=== PATIENT | male | born 1995 | race African-American/Black ===

== ENCOUNTER 2017-07-06 11:40 | Emergency (ER) | payer SELFPAY ==
[2017-07-06 12:07] LABS: Hematocrit 47.2 % (42.0-52.0); Mean Platelet Volume 7.4 fL (7.4-10.4); Red Blood Cell (RBC) Count 5.61 mill/uL (4.70-6.10); White Blood Cell (WBC) Count 17.7 thou/uL (4.8-10.8)
[2017-07-06 12:31] LABS: ALT (SGPT) 19 U/L (8-55); AST (SGOT) 15 U/L (5-34); Alkaline Phosphatase 69 U/L (40-150); Anion Gap 17 mmol/L (10-20); BUN (Urea Nitrogen) 7 mg/dL (8.9-20.6); Bilirubin, Total 0.8 mg/dL (0.2-1.2); Calc. Creatinine Clearance 0 mL/min (70-130); Calcium 10.1 mg/dL (7.8-10.44); Carbon Dioxide 19 mmol/L (22-29); Chloride 105 mmol/L (98-107); Estimated GFR-MDRD Greater than 90; Globulin 3.4 g/dL (2.4-3.5); Lipase 36 U/L (8-78); Protein, Total 7.8 g/dL (6.0-8.3)
[2017-07-06 12:37] LABS: Band 3 % (5-11); Neutrophil 80 % (42-75); Reactive Lymphocytes 2 % (0-10)
[2017-07-06] MEDS ORDERED: Dexamethasone 4 mg/ml Vial ONE (12:59)
== END 2017-07-06 13:21 | disposition home or self-care (01) ==
LOC: ERS 11:40 → MERGE 11:40 → ERS 13:21
DX: J06.9 Acute upper respiratory infection, unspecified (principal); J45.909 Unspecified asthma, uncomplicated; Z87.891 Personal history of nicotine dependence; Z79.899 Other long term (current) drug therapy
CPT/HCPCS: 36415; 80053; 83690; 85025; 87081; 87430; 99283; J1100

== ENCOUNTER 2017-07-28 20:50 | Emergency (ER) | payer SELFPAY ==
[2017-07-28 22:12] LABS: #Basophils 0.1 thou/uL (0.0-0.2); #Lymphocytes 1.3 thou/uL (1.20-3.40); #Monocytes 0.7 thou/uL (0.11-0.59); #Neutrophils 8.9 thou/uL (1.40-6.50); %Basophils 0.6 % (0.0-1.0); %Eosinophils 0.1 % (0.0-10.0); %Lymphocytes 12.1 % (21.0-51.0); %Monocytes 6.2 % (0.0-10.0); Hematocrit 44.2 % (42.0-52.0); Mean Platelet Volume 7.6 fL (7.4-10.4); Red Blood Cell (RBC) Count 5.16 mill/uL (4.70-6.10)
[2017-07-28 22:33] LABS: ALT (SGPT) 23 U/L (8-55); AST (SGOT) 14 U/L (5-34); Alkaline Phosphatase 79 U/L (40-150); Anion Gap 17 mmol/L (10-20); BUN (Urea Nitrogen) 9 mg/dL (8.9-20.6); Bilirubin, Total 0.7 mg/dL (0.2-1.2); Calc. Creatinine Clearance 0 mL/min (70-130); Calcium 9.8 mg/dL (7.8-10.44); Carbon Dioxide 22 mmol/L (22-29); Chloride 105 mmol/L (98-107); Estimated GFR-MDRD Greater than 90; Globulin 3.1 g/dL (2.4-3.5); Protein, Total 7.4 g/dL (6.0-8.3)
[2017-07-28 22:46] LABS: Acetaminophen Less than 6.0 mcg/mL (10.0-30.0); Salicylate Less than 8.0 mg/dL (15.0-30.0)
--- NOTE | 2017-07-28 23:05 | RAD ---
THREE VIEWS OF THE RIGHT WRIST 07/28/17 INDICATION: Right wrist pain. COMPARISON: None. FINDINGS: No acute fracture or subluxation is evident. IMPRESSION: No acute osseous abnormality. POS: [facility]
[2017-07-28 23:47] LABS: Bilirubin Negative (Negative); Blood, Urine Negative (Negative); Glucose, Urine (Dipstick) Negative (Negative); Ketone, Urine 15 mg/dL (Negative); Nitrite Negative (Negative); Protein, Urine (Dipstick) Trace mg/dL (Neg-Trace)
[2017-07-28 23:55] LABS: Amphetamine Not Detected (NotDetected); Methadone Not Detected (NotDetected); Methamphetamine Not Detected (NotDetected)
--- NOTE | 2017-09-17 13:59 | EKG ---
Test Reason : Blood Pressure : / mmHG Vent. Rate : 069 BPM Atrial Rate : 069 BPM P-R Int : 160 ms QRS Dur : 094 ms QT Int : 364 ms P-R-T Axes : 060 089 059 degrees QTc Int : 390 ms Normal sinus rhythm with sinus arrhythmia No ST/T wave changes Normal ECG Confirmed by SIOBHAN SAENZ DO ([id number]), online content editor RUPINDER AARON ([id number]) on 09/17/2017 1:58:55 PM Referred By: Confirmed By:SIOBHAN SAENZ DO
== END 2017-07-29 01:44 | disposition home or self-care (01) ==
LOC: ERS 20:50
DX: R55 Syncope and collapse (principal); R06.4 Hyperventilation; J45.909 Unspecified asthma, uncomplicated
CPT/HCPCS: 36415; 80053; 80306; 80307; 81003; 84146; 84443; 85025; 93005